=== PATIENT | male | born 1980 | race Caucasian/White ===

== ENCOUNTER 2016-10-16 14:31 | Emergency (ER) | payer OTHER ==
[2016-10-16 14:57] VITALS: BP 134/83
--- NOTE | 2016-10-16 15:15 | UC ---
Respiratory Complaint HPI - HPI Summary HPI Summary: 3 DAYS OF FATIGUE, NASAL CONGESTION, RHINITIS, ST, EAR PAIN, MYALGIAS. NO SIGNIFICANT COUGH. NO N/V/D. WOKE UP THIS MORNING WITH SHARP PAIN LEFT MID/ UPPER BACK RADIATING AROUND TO HIS SIDE. WORSE WITH DEEP INSPIRATION. FEELS HIS SX ARE IMPROVING BUT FAMILY MEMBERS CONCERNED ABOUT PNA. - History of Current Complaint Chief Complaint: UCRespiratory Stated Complaint: LOWER BACK PAIN Time Seen by Provider: 10/16/16 14:58 Hx Obtained From: Patient Pain Intensity: 7 Pain Scale Used: 0-10 Numeric - Allergies/Home Medications Allergies/Adverse Reactions: Allergies Allergy/AdvReac Type Severity Reaction Status Date / Time No Known Allergies Allergy Verified 10/16/16 14:57 Home Medications: Home Medications NK [No Home Medications Reported] 10/16/16 [History Confirmed 10/16/16] PMH/Surg Hx/FS Hx/Imm Hx Previously Healthy: Yes - Surgical History Surgical History: None - Family History Known Family History: Positive: Hypertension - Social History Alcohol Use: Occasionally Substance Use Type: None Smoking Status (MU): Never Smoked Tobacco Review of Systems Constitutional: Fatigue ENT: Sore Throat, Ear Ache, Nasal Discharge Respiratory: Other - LEFT SIDED PLEURITIC PAIN Cardiovascular: Negative Gastrointestinal: Negative Musculoskeletal: Arthralgia, Myalgia All Other Systems Reviewed And Are Negative: Yes Physical Exam Triage Information Reviewed: Yes Appearance: Well-Appearing, No Pain Distress, Well-Nourished Vital Signs: Initial Vital Signs Temp 98.4 F 10/16/16 14:54 Pulse 61 10/16/16 14:54 Resp 12 10/16/16 14:54 BP 134/83 10/16/16 14:54 Pulse Ox 100 10/16/16 14:54 Vital Signs Reviewed: Yes Eyes: Positive: Conjunctiva Clear ENT: Positive: Hearing grossly normal, Pharynx normal, TMs normal Neck: Positive: Supple, Nontender, No Lymphadenopathy Respiratory Exam: Normal Cardiovascular Exam: Normal Abdomen Description: Positive: Soft Musculoskeletal: Positive: No Edema Neurological: Positive: Alert Psychological: Positive: Age Appropriate Behavior Skin: Negative: rashes UC Diagnostic Evaluation - Laboratory O2 Sat by Pulse Oximetry: 100 - Radiology Xray Interpretation: No Acute Changes - CHEST XRAY Radiology Interpretation Completed By: Radiologist Respiratory Course/Dx - Differential Dx/Diagnosis Differential Diagnosis/HQI/PQRI: Bronchitis, Lower Resp Infection, Pulmonary Embolism Provider Diagnoses: ACUTE VIRAL SYNDROME Discharge - Discharge Plan Condition: Stable Disposition: HOME Patient Education Materials: Viral Syndrome (ED) Referrals: Marlen Poe MD [Primary Care Provider] - If Needed Additional Instructions: CHEST XRAY TODAY UNREMARKABLE. YOUR SYMPTOMS ARE LIKELY DUE TO YOUR ACUTE RESPIRATORY INFECTION/VIRAL SYNDROME AND SHOULD CONTINUE TO IMPROVE OVER THE NEXT WEEK OR SO. SEEK FOLLOW-UP IF YOU DO NOT CONTINUE TO IMPROVE EXPECTED. TRY OTC AFRIN FOR NASAL CONGESTION. OKAY TO USE 2-3 SPRAYS IN EACH NOSTRIL UP TO 2 TIMES DAILY. DO NOT USE FOR MORE THAN 3-4 CONSECUTIVE DAYS TO PREVENT DEVELOPING REBOUND CONGESTION. VIRAL SYNDROME: The physician has diagnosed a viral infection. Viruses not only cause "colds," but can cause many different symptoms including generalized aching, fever, headache, cough, diarrhea, nausea, vomiting, and fatigue. The treatment, for the most part, is simply relief of symptoms. This means that antibiotics are usually not given. Rest, fluids, pain medications and, occasionally, medication for the specific symptoms that are most bothersome will be prescribed. Contact the physician if you develop any new or unusual symptoms such as severe headache, stiff neck, high fever, chest pain, productive cough, or shortness of breath. You should be rechecked if you don't see marked improvement within seven to 10 days.
--- NOTE | 2016-10-16 15:44 | RAD ---
INDICATION: Pleuritic chest pain. COMPARISON: There are no prior studies available for comparison. TECHNIQUE: Dual-energy PA and lateral views of the chest were obtained. FINDINGS: The heart is within normal limits in size. Mediastinal and hilar contours appear within normal limits. The lungs are clear. No pleural effusion or pneumothorax is seen. IMPRESSION: NO EVIDENCE FOR ACTIVE CARDIOPULMONARY DISEASE.
== END 2016-10-16 16:10 | disposition home or self-care (01) ==
LOC: UCEAST 14:31
DX: B34.9 Viral infection, unspecified (principal)
CPT/HCPCS: 71020; 99211; G0463

== ENCOUNTER 2017-09-08 18:04 | Emergency (ER) | payer OTHER ==
[2017-09-08 18:15] VITALS: BP 144/99
[2017-09-08] MEDS ORDERED: Ibuprofen TAB* 400 MG PO ONE (18:17)
--- NOTE | 2017-09-08 18:44 | UC ---
FLU HPI - HPI Summary HPI Summary: Pt presents with dry cough, sore throat, and body aches for the last 3 days. He has felt feverish, but has not taken his temperature. Has been taking tylenol for his discomfort with mild relief. 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 Denies chills, SOB, chest pain, abdominal pain, n/v/d/c. - History of Current Complaint Chief Complaint: UCRespiratory Stated Complaint: sore throat, and sinus congestion Time Seen by Provider: 09/08/17 18:17 Hx Obtained From: Patient Onset/Duration: Gradual Onset Severity Currently: Moderate Severity Initially: Severe Pain Intensity: 8 Pain Scale Used: 0-10 Numeric - Allergy/Home Medications Allergies/Adverse Reactions: Allergies Allergy/AdvReac Type Severity Reaction Status Date / Time No Known Allergies Allergy Verified 09/08/17 18:15 PMH/Surg Hx/FS Hx/Imm Hx Previously Healthy: Yes - Surgical History Surgical History: None - Family History Known Family History: Positive: Hypertension - Social History Occupation: Employed Full-time Lives: Alone Alcohol Use: Occasionally Substance Use Type: None Smoking Status (MU): Never Smoked Tobacco Review of Systems Constitutional: Fever, Other - Body aches Skin: Negative Eyes: Negative ENT: Sore Throat Respiratory: Cough Cardiovascular: Negative Gastrointestinal: Negative Musculoskeletal: Negative Neurological: Negative Psychological: Negative All Other Systems Reviewed And Are Negative: Yes Physical Exam Triage Information Reviewed: Yes Appearance: No Pain Distress, Well-Nourished, Ill-Appearing Vital Signs: Initial Vital Signs Temp 103.0 F 09/08/17 18:13 Pulse 104 09/08/17 18:13 Resp 18 09/08/17 18:13 BP 144/99 09/08/17 18:13 Pulse Ox 99 09/08/17 18:13 Vital Signs Reviewed: Yes Eyes: Positive: Conjunctiva Clear. Negative: Conjunctiva Inflamed, Discharge ENT: Positive: Hearing grossly normal, Pharynx normal, TMs normal, Uvula midline. Negative: Pharyngeal erythema, Nasal congestion, Nasal drainage, TM bulging, TM dull, TM red, Tonsillar swelling, Tonsillar exudate, Hoarse voice, Sinus tenderness Neck: Positive: Supple, Nontender, No Lymphadenopathy Respiratory: Positive: Chest non-tender, Lungs clear, Normal breath sounds, No respiratory distress, No accessory muscle use Cardiovascular: Positive: RRR, No Murmur, Pulses Normal Neurological: Positive: Alert Psychological: Positive: Age Appropriate Behavior Skin: Negative: rashes, significant lesion(s) Flu Course/Dx - Course Course Of Treatment: Influenza B positive. Tamiflu, tessalon, and tylenol/ ibuprofen for fevers. - Differential Dx/Diagnosis Provider Diagnoses: Influenza B. Cough Discharge - Discharge Plan Condition: Stable Disposition: HOME Prescriptions: Benzonatate CAP* [Tessalon 100 MG CAP*] 100 mg PO TID PRN #21 cap PRN Reason: Cough Oseltamivir CAP* [Tamiflu CAP*] 75 mg PO BID #10 cap Patient Education Materials: Influenza (DC) Forms: *Work Release Referrals: Marlen Poe MD [Primary Care Provider] - Additional Instructions: If you develop a fever, shortness of breath, chest pain, new or worsening symptoms - please call your PCP or go to the ED. Your blood pressure was high at todays visit. Please see your primary provider within 4 weeks for recheck and re-evaluation 1) May take ibuprofen OTC or tylenol OTC for any fevers or discomfort.
== END 2017-09-08 18:55 | disposition home or self-care (01) ==
LOC: UCEAST 18:04
DX: J10.1 Influenza due to other identified influenza virus with other respiratory manifestations (principal); R05 Cough
CPT/HCPCS: 87502; 99212; A9270-GY; G0463

== ENCOUNTER 2017-09-12 13:25 | Emergency (ER) | payer OTHER ==
[2017-09-12 14:19] LABS: ABS Basophils 0 10^3/ul (0-0.2); ABS Eosinophils 0.1 10^3/ul (0-0.6); ABS Lymphocytes 1.7 10^3/ul (1.0-4.8); ABS Monocytes 0.3 10^3/ul (0-0.8); ABS Neutrophils 1.5 10^3/ul (1.5-7.7); ABS Nucleated RBC 0 10^3/ul; Eosinophil % 1.7 % (0-6); Hematocrit 45 % (42-52); Hemoglobin 15.3 g/dl (14.0-18.0); Lymphocyte % 47.1 % (25-47); Mean Corpuscular HGB Conc 34 g/dl (31-36); Mean Corpuscular Hemoglobin 31 pg (27-31); Mean Corpuscular Volume 89 fL (80-94); Mean Platelet Volume 8 um3 (7.4-10.4); Nucleated Red Blood Cells % 0; Platelet Count 222 10^3/ul (150-450); Red Blood Count 5.01 10^6/ul (4.0-5.4); Red Cell Distribution Width 14 % (10.5-15); White Blood Count 3.7 10^3/ul (3.5-10.8)
[2017-09-12 14:33] LABS: EGFR Non-African American 99.3 (>60)
--- NOTE | 2017-09-12 14:42 | RAD ---
INDICATION: Chest pain COMPARISON: October 16, 2016 TECHNIQUE: PA and lateral dual-energy views were obtained. FINDINGS: Bones/Soft Tissues: There are no acute bony findings. Cardiomediastinal: The cardiomediastinal silhouette is normal. Lungs: There are no infiltrates. Pleura: There are no pleural effusions. Other: None IMPRESSION: NO ACTIVE DISEASE.
[2017-09-12] MEDS ORDERED: Ketorolac INJ* 30 MG/ML 1 ML VIAL IV PUSH ONE (15:54)
--- NOTE | 2017-09-12 18:02 | ED ---
Manuel Marcelino Angela, scribed for Tirso Villarreal MD on 09/12/17 at 1412 . HPI Chest Pain - HPI Summary HPI Summary: This pt is a 36 y/o male presenting to [facility] c/o consistent chest pain x4 days. Pt reports he was seen in Urgent Care on 09/08/17 and tested positive for influenza. Pt states he was given Tamiflu and started taking it that night. Pt notes over the past 3 days his flu felt better but continued to have persistent chest pain. He states his chest pain is more uncomfortable than pain. He describes his chest pain as sharp and pressure, and rates it 8/10 in severity. Pt reports his chest pressure radiates to his back. Pt notes some SOB. Denies pleuritic chest pain. Pt states having this same chest pain in the past during stressful times, but they didn't last as long. - History of Current Complaint Chief Complaint: EDChestPainROMI Time Seen by Provider: 09/12/17 14:00 Hx Obtained From: Patient Onset/Duration: Started Days Ago, Still Present Timing: Lasting Days Current Severity: Severe Pain Intensity: 8 - uncomfortable chest pain Pain Scale Used: 0-10 Numeric Chest Pain Location: Diffuse Chest Pain Radiates: Yes Chest Pain Radiates To:: Back Character: Pressure/Squeezing, Sharp/Stabbing Aggravating Factor(s): Nothing Alleviating Factor(s): Nothing Associated Signs and Symptoms: Positive: Chest Pain, Shortness of Breath - Allergy/Home Medications Allergies/Adverse Reactions: Allergies Allergy/AdvReac Type Severity Reaction Status Date / Time No Known Allergies Allergy Verified 09/08/17 18:15 PMH/Surg Hx/FS Hx/Imm Hx Endocrine/Hematology History: Denies: Hx Diabetes Cardiovascular History: Denies: Hx Hypertension Respiratory History: Denies: Hx Asthma Infectious Disease History: No Infectious Disease History: Denies: Traveled Outside the [place] in Last 30 Days - Family History Known Family History: Positive: Hypertension - Social History Alcohol Use: Occasionally Substance Use Type: Reports: None Smoking Status (MU): Never Smoked Tobacco Review of Systems Negative: Fever, Chills Positive: Chest Pain Positive: Shortness Of Breath Musculoskeletal: Negative Skin: Negative Neurological: Negative All Other Systems Reviewed And Are Negative: Yes Physical Exam - Summary Physical Exam Summary: VITAL SIGNS: Reviewed. GENERAL: Patient is a well-developed and nourished male who is lying comfortable in the stretcher. Patient is not in any acute respiratory distress. HEAD AND FACE: No signs of trauma. No ecchymosis, hematomas or skull depressions. No sinus tenderness. EYES: PERRLA, EOMI x 2, No injected conjunctiva, no nystagmus. EARS: Hearing grossly intact. Ear canals and tympanic membranes are within normal limits. MOUTH: Oropharynx within normal limits. NECK: Supple, trachea is midline, no adenopathy, no JVD, no carotid bruit, no c- spine tenderness, neck with full ROM. CHEST: Symmetric, no tenderness at palpation LUNGS: Clear to auscultation bilaterally. No wheezing or crackles. CVS: Regular rate and rhythm, S1 and S2 present, no murmurs or gallops appreciated. ABDOMEN: Soft, non-tender. No signs of distention. No rebound no guarding, and no masses palpated. Bowel sounds are normal. EXTREMITIES: FROM in all major joints, no edema, no cyanosis or clubbing. NEURO: Alert and oriented x 3. No acute neurological deficits. Speech is normal and follows commands. SKIN: Dry and warm Triage Information Reviewed: Yes Vital Signs On Initial Exam: Initial Vitals Temp Pulse Resp BP Pulse Ox 99.5 F 62 18 144/86 97 09/12/17 13:26 09/12/17 13:26 09/12/17 13:26 09/12/17 13:26 09/12/17 13:26 Vital Signs Reviewed: Yes Diagnostics - Vital Signs Vital Signs Temp Pulse Resp BP Pulse Ox 09/12/17 13:26 99.5 F 62 18 144/86 97 - Laboratory Result Diagrams: 09/12/17 14:10 09/12/17 14:10 Lab Statement: Any lab studies that have been ordered have been reviewed, and results considered in the medical decision making process. - Radiology Chest XR Xray Interpretation: No Acute Changes - IMPRESSION: No active disease. Dr. Villarreal has reviewed this radiology report. Radiology Interpretation Completed By: Radiologist - EKG 13:29 Cardiac Rate: NL EKG Interpretation: Sinus arrhythmia at [address] elevation. Normal axis. Chest Pain Course/Dx - Course Course Of Treatment: This pt is a 36 y/o male presenting to [facility] c/o consistent chest pain x4 days. Pt reports he was seen in Urgent Care on 09/08/17 and tested positive for influenza. Pt states he was given Tamiflu and started taking it that night. Pt notes over the past 3 days his flu felt better but continued to have persistent chest pain. He states his chest pain is more uncomfortable than pain. He describes his chest pain as sharp and pressure, and rates it 8/10 in severity. Pt reports his chest pressure radiates to his back. Pt notes some SOB. Denies pleuritic chest pain. Pt states having this same chest pain in the past during stressful times, but they didn't last as long. Test results without any significant abnormalities. Two troponins of 0.0. I don t believe the pt has acute coronary syndrome, it may be musculoskeletal pain. Chest XR shows no active disease. I offered the pt Toradol for the pain but he declines. Since he is feeling better he will be discharged to home with follow up from PCP. He will continue to take Tamiflu for the flu. Pt is hemodynamically stable, alert and oriented x3. - Diagnoses Provider Diagnoses: Influenza, Atypical chest pain Discharge - Discharge Plan Condition: Stable Disposition: HOME Patient Education Materials: Chest Pain (ED), Influenza (ED) Referrals: Marlen Poe MD [Primary Care Provider] - 1 Week Additional Instructions: Please follow up with your primary care provider. RETURN TO THE ED FOR ANY WORSENING SYMPTOMS. The documentation as recorded by the Manuel roper Angela accurately reflects the service I personally performed and the decisions made by me, Tirso Villarreal MD.
[2017-09-12 18:13] VITALS: BP 125/73
== END 2017-09-12 18:20 | disposition home or self-care (01) ==
LOC: ED 13:25
DX: J11.1 Influenza due to unidentified influenza virus with other respiratory manifestations (principal); R07.89 Other chest pain; R06.02 Shortness of breath
CPT/HCPCS: 36415; 71046; 80053; 82550; 82553; 83605; 83735; 83880; 84443; 84484; 85025; 87502; 93005; 96374; 99283; J1885